=== PATIENT | female | born 1960 | race Two or more races ===

== ENCOUNTER 2018-04-01 16:13 | Emergency (ER) | payer OTHER ==
[~2018-04-01] VITALS: Ht 167.6 cm; Wt 80.7 kg
[~2018-04-01 16:13] MED LIST: CHOLESTERAL MED
[2018-04-01] MEDS ORDERED: HYDROCODONE/APAP 10-325 MG TABLET PO ONE (17:30)
[2018-04-01] MEDS ORDERED: AZITHROMYCIN 250 MG TABLET PO ONE (17:30)
[2018-04-01] MEDS ORDERED: AZITHROMYCIN 250 MG TABLET ONE (17:31)
[2018-04-01] MEDS ORDERED: HYDROCODONE/APAP 10-325 MG TABLET ONE (17:31)
--- NOTE | 2018-04-01 17:32 | NUR ---
PATIENT WAS SEEN BY DR PUTNAM. MEDICATIONS GIVEN ORDERED.
--- NOTE | 2018-04-01 18:16 | NUR ---
PATIENT STATES PAIN HAS DIMINISHED. DC, RX AND FOLLOW UP INSTRUCTIONS GIVEN AND EXPLAINED TO PATIENT WHO STATES SHE UNDERSTANDS ALL INSTRUCTIONS INCLUDING NARCOTIC PRECAUTIONS. PATIENT STATES SHE WILL NOT DRIVE TODAY.
== END 2018-04-01 18:18 | disposition home or self-care (01) ==
LOC: ER 16:17
DX: J06.9 Acute upper respiratory infection, unspecified (principal); Z79.899 Other long term (current) drug therapy
CPT/HCPCS: A4663; Q0144

== ENCOUNTER 2019-04-24 03:13 | Emergency (ER) | payer OTHER ==
[~2019-04-24] VITALS: Ht 167.6 cm; Wt 80.7 kg
--- NOTE | 2019-04-24 03:20 | NUR ---
PATIENT WALKED INTO ER C/O LLQ ABDOMINAL PAIN RADIATING TO BACK X2 DAYS. PATIENT STATES PAIN HAS WORSEN LAST NIGHT.
[2019-04-24] MEDS ORDERED: IBUP-23 PO (03:22)
[2019-04-24] MEDS ORDERED: SIMVASTATIN 40MG TABLET (03:22)
[2019-04-24] MEDS ORDERED: IV NORMAL SALINE 1000 ML BAG IV ONE (04:00)
[2019-04-24] MEDS ORDERED: KETOROLAC TROMETHAMINE 15 MG INJ IV ONE (04:00)
[2019-04-24] MEDS ORDERED: METOCLOPRAMIDE HCL 10 MG/2 ML VIAL IV ONE (04:00)
[2019-04-24] MEDS ORDERED: KETOROLAC TROMETHAMINE 15 MG INJ ONE (04:03)
[2019-04-24] MEDS ORDERED: METOCLOPRAMIDE HCL 10 MG/2 ML VIAL ONE (04:03)
[2019-04-24 04:30] LABS: BASOPHILS % (AUTO) 0.7 % (0.0-2.0); CREATININE 0.6 mg/dL (0.6-1.3); EOSINOPHILS # (AUTO) 0.2 K/uL (0.0-0.7); EOSINOPHILS % (AUTO) 2.8 % (0.0-7.0); HEMATOCRIT 39.6 % (31.2-41.9); HEMOGLOBIN 13.8 g/dL (10.9-14.3); LYMPHOCYTES % (AUTO) 44.3 % (20.5-51.5); MEAN CORPUSCULAR HEMOGLOBIN 29.6 uug (24.7-32.8); MEAN CORPUSCULAR HGB CONC 35 g/dL (32.3-35.6); MONOCYTES # (AUTO) 0.5 K/uL (2.0-10.0); MONOCYTES % (AUTO) 7.5 % (0.0-11.0); NEUTROPHILS % (AUTO) 44.7 % (38.5-71.5); PLATELET COUNT (AUTO) 208 K/uL (179-408); POTASSIUM 3.7 mmol/L (3.5-5.1); RED BLOOD CELL COUNT(AUTO) 4.67 MIL/uL (3.63-4.92); WHITE BLOOD COUNT (AUTO) 6.7 K/uL (3.8-11.8)
--- NOTE | 2019-04-24 04:31 | NUR ---
PATIENT OUT OF UNIT FOR CT SCAN VIA GURNY
[2019-04-24 04:35] LABS: BILIRUBIN,DIRECT 0.1 mg/dL (0.0-0.2); BILIRUBIN,TOTAL 0.5 mg/dL (0.2-1.0); TOTAL PROTEIN, SERUM 7.1 g/dL (6.4-8.2)
[2019-04-24 04:36] LABS: *BILIRUBIN,URIN NEGATIVE (NEGATIVE); *CLARITY,URINE CLEAR (CLEAR); *COLOR,URINE YELLOW (YELLOW); *KETONES,URINE NEGATIVE (NEGATIVE); *UROBILINOGEN,URINE 0.2 E.U./dl (NORMAL); LEUKOCYTE ESTERASE ,URINE NEGATIVE (NEGATIVE); NITRITE, URINE NEGATIVE (NEGATIVE); UGLUCOSE NEGATIVE (NEGATIVE)
[2019-04-24 04:40] LABS: *BLOOD, URINE TRACE (NEGATIVE)
[2019-04-24 04:45] LABS: BACTERIA,URINE NONE SEEN /HPF (NONE SEEN); SQUAMOUS EPITHELIAL CELL,UR FEW /HPF (NONE SEEN); WBC,URINE 0-3 /HPF (0-3)
--- NOTE | 2019-04-24 05:00 | NUR ---
PATIENT SLEEPING WITH NO DISTRESS NOTED
[2019-04-24] MEDS ORDERED: DEXAMETHASONE SOD PHOSPHATE 10 MG INJ ONE (06:13)
--- NOTE | 2019-04-24 06:14 | NUR ---
IV removed. Catheter intact and site benign. Pressure and 4x4 gauze applied to site. No bleeding noted.
[2019-04-24] MEDS ORDERED: DEXAMETHASONE SOD PHOSPHATE 4 MG INJ IV ONE (06:15)
[2019-04-24 06:18] VITALS: BP 128/65
== END 2019-04-24 06:20 | disposition home or self-care (01) ==
LOC: ER 03:18
DX: K65.4 Sclerosing mesenteritis (principal); Z79.1 Long term (current) use of non-steroidal anti-inflammatories (NSAID); Z79.899 Other long term (current) drug therapy
CPT/HCPCS: 36415; 71045; 74176; 80048; 80076; 81001; 83690; 84484; 85025; 93005; 96374; 96375; 99284; J1100; J1885; J2765; 70030-TC; A4663; J7030

== ENCOUNTER 2019-05-01 02:56 | Emergency (ER) | payer OTHER ==
[~2019-05-01] VITALS: Ht 167.6 cm; Wt 79.4 kg
[~2019-05-01 02:56] MED LIST changes: +IBUP-23 PO; +SIMVASTATIN 40MG TABLET
[2019-05-01] MEDS ORDERED: [UNRECOGNIZED DRUG - OTHER] (03:08)
[2019-05-01] MEDS ORDERED: HYDROCODONE (03:08)
--- NOTE | 2019-05-01 03:20 | NUR ---
PATIENT WAS MSE BY DR VICENTE IN ROOM 05A.
[2019-05-01 03:45] LABS: BASOPHILS % (AUTO) 0.3 % (0.0-2.0); EOSINOPHILS % (AUTO) 0.2 % (0.0-7.0); HEMOGLOBIN 13.6 g/dL (10.9-14.3); LYMPHOCYTES # (AUTO) 3.4 K/uL (20.0-40.0); LYMPHOCYTES % (AUTO) 29.7 % (20.5-51.5); MEAN CORPUSCULAR HGB CONC 34 g/dL (32.3-35.6); MEAN CORPUSCULAR VOLUME 85.5 fL (75.5-95.3); MONOCYTES # (AUTO) 0.9 K/uL (2.0-10.0); MONOCYTES % (AUTO) 7.8 % (0.0-11.0); NEUTROPHILS # (AUTO) 7.1 K/uL (1.8-8.9); PLATELET COUNT (AUTO) 254 K/uL (179-408); RED BLOOD CELL COUNT(AUTO) 4.68 MIL/uL (3.63-4.92); WHITE BLOOD COUNT (AUTO) 11.4 K/uL (3.8-11.8)
[2019-05-01] MEDS ORDERED: TRAMADOL HCL 50 MG TABLET PO ONE (03:45)
[2019-05-01] MEDS ORDERED: TRAMADOL HCL 50 MG TABLET ONE (03:53)
[2019-05-01 03:54] LABS: ALANINE AMINOTRANSFERASE 21 U/L (14-59); ALKALINE PHOSPHATASE 91 U/L (50-136); ASPARTATE AMINOTRANSFERASE < 5 U/L (15-37); BILIRUBIN,DIRECT 0.1 mg/dL (0.0-0.2); BILIRUBIN,TOTAL 0.4 mg/dL (0.2-1.0); CARBON DIOXIDE 26 mmol/L (21-32); CHLORIDE 105 mmol/L (98-107); CREATININE 0.5 mg/dL (0.6-1.3); GLUCOSE 118 mg/dL (74-106); LIPASE 120 U/L (73-393); POTASSIUM 3.6 mmol/L (3.5-5.1); TOTAL PROTEIN, SERUM 7.4 g/dL (6.4-8.2); UREA NITROGEN, BLOOD 19 mg/dL (7-18)
--- NOTE | 2019-05-01 05:10 | NUR ---
DR VICENTE MADE PATIENT AWARE OF TEST RESULTS.
[2019-05-01 05:21] VITALS: BP 137/86
--- NOTE | 2019-05-01 05:22 | NUR ---
Patient discharged to home in stable conditon. Written and verbal after care instructions given. Patient verbalizes understanding of instructions.
== END 2019-05-01 05:27 | disposition home or self-care (01) ==
LOC: ER 03:01
DX: R10.32 Left lower quadrant pain (principal); Z79.1 Long term (current) use of non-steroidal anti-inflammatories (NSAID); Z79.899 Other long term (current) drug therapy
CPT/HCPCS: 36415; 76856; 83690; 85025; A4663

== ENCOUNTER 2021-02-14 22:34 | Emergency (ER) | payer OTHER ==
[~2021-02-14] VITALS: Ht 167.6 cm; Wt 78.0 kg
[~2021-02-14 22:34] MED LIST changes: +HYDROCODONE; +[UNRECOGNIZED DRUG - OTHER]
[2021-02-14 23:24] LABS: BASOPHILS # (AUTO) 0.1 K/uL (0.0-8.0); EOSINOPHILS # (AUTO) 0.2 K/uL (0.0-0.7); EOSINOPHILS % (AUTO) 2.1 % (0.0-7.0); HEMATOCRIT 36.1 % (31.2-41.9); LYMPHOCYTES # (AUTO) 3.7 K/uL (20.0-40.0); LYMPHOCYTES % (AUTO) 42.9 % (20.5-51.5); MEAN CORPUSCULAR HEMOGLOBIN 31.1 uug (24.7-32.8); MEAN CORPUSCULAR HGB CONC 36 g/dL (32.3-35.6); MEAN CORPUSCULAR VOLUME 86.3 fL (75.5-95.3); MONOCYTES # (AUTO) 0.5 K/uL (2.0-10.0); MONOCYTES % (AUTO) 5.6 % (0.0-11.0); NEUTROPHILS # (AUTO) 4.2 K/uL (1.8-8.9); NEUTROPHILS % (AUTO) 48.4 % (38.5-71.5); PLATELET COUNT (AUTO) 207 K/uL (179-408); RED BLOOD CELL COUNT(AUTO) 4.19 MIL/uL (3.63-4.92); WHITE BLOOD COUNT (AUTO) 8.6 K/uL (3.8-11.8)
--- NOTE | 2021-02-14 23:32 | NUR ---
Pt. A&Ox4, well fit, breathing normal & even, skin w/d/i, speech normal, c/o L upper chest pain, L arm pain rating 4/10. Blood drawn for lab, monitor on for ekg, oximeter, VS. Safety & comfort placed in patient.
[2021-02-14 23:38] LABS: BILIRUBIN,TOTAL 0.4 mg/dL (0.2-1.0); CREATININE 0.7 mg/dL (0.6-1.3); POTASSIUM 3.4 mmol/L (3.5-5.1); TOTAL PROTEIN, SERUM 7.1 g/dL (6.4-8.2)
[2021-02-15] MEDS ORDERED: ASPIRIN 81 MG TAB.CHEW PO ONE
--- NOTE | 2021-02-15 00:06 | NUR ---
Pt reports taking Aspirin 162mg at home this evening [address] Светлана espinal.
[2021-02-15 00:49] VITALS: BP 127/88
== END 2021-02-15 00:50 | disposition home or self-care (01) ==
LOC: ER 22:39
DX: R07.9 Chest pain, unspecified (principal); Z83.3 Family history of diabetes mellitus; Z98.82 Breast implant status
CPT/HCPCS: 36415; 70030-TC; 71045; 82985; 83735; 85025; 93005; A4663

== ENCOUNTER 2021-10-03 14:08 | Emergency (ER) | payer OTHER ==
[~2021-10-03] VITALS: Ht 167.6 cm; Wt 77.1 kg
--- NOTE | 2021-10-03 14:29 | NUR ---
Debbie suazo in ED - 10/03/21 at 1434 by [facility] 230 EMT Jitendra is here. SBAR given to Jitendra.
--- NOTE | 2021-10-03 14:30 | NUR ---
Patient discharged to home in stable condition with brisk steady gait. Written and verbal after care instructions given. Patient verbalized understanding and compliance of instructions. Stressed follow up her plastic surgeon and primary doctor or return to ER for worsening s/s.
== END 2021-10-03 14:30 | disposition home or self-care (01) ==
LOC: ER 14:08
DX: T81.31XA Disruption of external operation (surgical) wound, not elsewhere classified, initial encounter (principal); Z41.1 Encounter for cosmetic surgery; Z83.3 Family history of diabetes mellitus
CPT/HCPCS: A4217; A4663